=== PATIENT | female | born 1950 | race Two or more races ===

== ENCOUNTER → 2019-04-28 | Outpatient (CLI) | payer OTHER | END | disposition home or self-care (01) | LOC: SONOGRAMA 09:25 | DX: N60.11 Diffuse cystic mastopathy of right breast (principal); N60.12 Diffuse cystic mastopathy of left breast; M81.0 Age-related osteoporosis without current pathological fracture ==

== ENCOUNTER 2019-05-30 07:44 | Outpatient (CLI) | payer OTHER | END 2019-05-30 07:45 | disposition home or self-care (01) | LOC: RAD 07:44 | DX: M54.5 Low back pain (principal) ==